=== PATIENT | female | born 1965 | race Caucasian/White ===

== ENCOUNTER → 2020-06-03 | Outpatient (CLI) | payer MEDICARE, OTHER ==
[~2020-06-03] MED LIST: ALBUTEROL2.5 MG/3 M INH; ALDACTONE 25MG25 MG PO; ASPIR 8181 MG PO; ATORVASTATIN CA20 MG PO; BRILINTA 90 MG90 MG PO; CORDARONE 200M200 MG PO; DIGOXIN250 MCG PO; ELIQUIS5 MG PO; ENTRESTO 24 MG1 EACH PO; FUROSEMIDE20 MG PO; HYDROCODON-ACE1 EAC4 PO; KLONOPIN0.5 MG PO; LANTUS SOL100 UNIT/1 SQ; LASIX20 MG PO; LEVEMIR100 UNIT/1 SQ; LIPITOR TAB 2020 MG PO; LISINOPRIL5 MG PO; METOPROLOL SUC100 MG PO; NEURONTIN600 MG PO; NITROSTAT 0.40.4 MG SL; PROTONIX 40 MG40 M1 PO; TOPROL XL100 MG PO; TRULICITY1.5 MG/0.5 SQ
== END ==
LOC: RAD 14:45
DX: M79.672 Pain in left foot (principal); M25.572 Pain in left ankle and joints of left foot; M19.072 Primary osteoarthritis, left ankle and foot
CPT/HCPCS: 73610; 73630

== ENCOUNTER 2020-12-03 11:21 | Emergency (ER) | payer MEDICARE, OTHER ==
[2020-12-03 12:03] LABS: HEMOGLOBIN 13.8 gm/dl (12.3-15.3); RED BLOOD COUNT 4.48 M/UL (4.00-5.10); WHITE BLOOD COUNT 2.9 K/UL (4.5-11.0)
== END 2020-12-03 19:24 | disposition home or self-care (01) ==
LOC: ER1 11:21
PROVIDERS: Physician Assistant Medical
DX: Z23 Encounter for immunization (principal); U07.1 COVID-19; J44.9 Chronic obstructive pulmonary disease, unspecified; E11.9 Type 2 diabetes mellitus without complications; I11.9 Hypertensive heart disease without heart failure; F17.200 Nicotine dependence, unspecified, uncomplicated; Z90.710 Acquired absence of both cervix and uterus; Z95.0 Presence of cardiac pacemaker
CPT/HCPCS: 71045; 80053; 82550; 82553; 83874; 83880; 84484; 85025; 93005; 99285; M0243; U0002

== ENCOUNTER → 2021-10-15 | Outpatient (CLI) | payer MEDICARE, OTHER | LOC: RAD 14:00 | DX: R06.00 Dyspnea, unspecified (principal) | CPT/HCPCS: 71046 ==